=== PATIENT | female | born 1970 | race American Indian/Alaskan Native ===

== ENCOUNTER → 2017-06-30 | Outpatient (CLI) | payer MEDICARE, MEDICAID | LOC: SLR 11:00 | PROVIDERS: ATTEND Specialist | DX: G47.30 Sleep apnea, unspecified (principal); I10 Essential (primary) hypertension | CPT/HCPCS: 95810 ==

== ENCOUNTER 2017-11-18 06:10 | Day surgery (SDC) | payer MEDICARE ==
--- NOTE | 2017-11-18 07:47 | Anesthesia Day of Surgery ---
Anesthesia Day of Surgery - Day of Surgery Patient Examined: Yes Patient H&P Reviewed: Yes Patient is NPO: Yes
--- NOTE | 2017-11-18 07:47 | Anesthesia Consultation ---
Anesthesia Consult and Med Hx Date of service: 11/18/17 - Airway Anesthetic Teeth Evaluation: Poor, Chipped (front teeth ) ROM Head & Neck: Adequate Mental/Hyoid Distance: Adequate Mallampati Class: Class II Intubation Access Assessment: Probably Good - Pulmonary Exam CTA: Yes - Cardiac Exam Cardiac Exam: RRR - Pre-Operative Health Status ASA Pre-Surgery Classification: ASA3 Proposed Anesthetic Plan: MAC - Pulmonary Hx Asthma: Yes (last inhaler use 2m ago ) Hx Sleep Apnea: Yes (cpap) - Cardiovascular System Hx Hypertension: Yes Hx Heart Murmur: Yes - Central Nervous System Hx Back Pain: Yes - Hematic Hx Anemia: Yes
[2017-11-18] MEDS ORDERED: NACL 0.9% 1000 ML 1,000 ML IV SCH (08:00)
[2017-11-18] MEDS ORDERED: DIPRIVAN 10 MG/ML IV ONE (08:50)
[2017-11-18 09:31] VITALS: BP 124/80
--- NOTE | 2017-11-18 11:33 | Post Anesthesia Evaluation ---
- Post Anesthesia Evaluation Patient Participated: Yes Airway Patent: Yes Stable Respiratory Function: Yes Nausea/Vomiting: No Temp > 96.8F: Yes Pain Manageable: Yes Adequeate Hydration: Yes Anesthesia Complications: No
== END 2017-11-18 06:11 | disposition home or self-care (01) ==
LOC: GIO 06:10
PROVIDERS: ATTEND Specialist
DX: K21.0 Gastro-esophageal reflux disease with esophagitis (principal); K44.9 Diaphragmatic hernia without obstruction or gangrene; E66.01 Morbid (severe) obesity due to excess calories; J45.909 Unspecified asthma, uncomplicated; R06.02 Shortness of breath; F32.9 Major depressive disorder, single episode, unspecified; F41.9 Anxiety disorder, unspecified; D64.9 Anemia, unspecified; I10 Essential (primary) hypertension; M54.5 Low back pain; Z82.49 Family history of ischemic heart disease and other diseases of the circulatory system; Z79.899 Other long term (current) drug therapy; Z88.8 Allergy status to other drugs, medicaments and biological substances; Z68.41 Body mass index [BMI] 40.0-44.9, adult
CPT/HCPCS: 43235; 81025; J2704; J7030